=== PATIENT | female | born 1980 | race Caucasian/White ===

== ENCOUNTER 2019-01-26 12:53 | Emergency (ER) | payer OTHER ==
[2019-01-26 12:58] VITALS: O2SAT 100
[2019-01-26] MEDS ORDERED: Sodium Chloride 0.9% 1,000 ML IV STA (14:05)
[2019-01-26] MEDS ORDERED: Alum-Mag Hydrox-Simethicone Susp (30 mL) PO ONE (14:06)
[2019-01-26] MEDS ORDERED: Alum-Mag Hydrox-Simethicone Susp (30 mL) ONE (14:21)
--- NOTE | 2019-01-26 14:39 | ED PDOC ---
HPI: Abdomen Time Seen by Provider: 01/26/19 13:29 Chief Complaint (Nursing): Abdominal Pain Chief Complaint (Provider): abdominal pain History Per: Patient History/Exam Limitations: no limitations Additional Complaint(s): 38 y/o F with no significant PMH who presents with epigastric pain since yesterday. Pt states that she began having epigastric abdominal pain yesterday afternoon that has been intermittent. She had chills once and 2 episodes of N/V, non-bloody, non-bilious. Denies diarrhea. Last BM yesterday evening, normal. Denies fever, dizziness, prior surgical history. She has been able to tolerate food today and no longer feeling nauseous. Past Medical History Reviewed: Historical Data, Nursing Documentation, Vital Signs Vital Signs: Last Vital Signs Temp 98.2 F 01/26/19 12:55 Pulse 66 01/26/19 12:55 Resp 16 01/26/19 12:55 BP 119/77 01/26/19 12:55 Pulse Ox 100 01/26/19 12:55 Primary Care Provider: FAMILY PROVIDER,NO - Medical History PMH: No Chronic Diseases - Surgical History Surgical History: No Surg Hx - Family History Family History: States: Unknown Family Hx - Immunization History Hx Tetanus Toxoid Vaccination: No Hx Influenza Vaccination: No Hx Pneumococcal Vaccination: No - Home Medications Home Medications: Ambulatory Orders Medication Instructions Recorded Azithromycin [Zithromax Z-Rui] 250 mg PO DAILY #1 packet 09/23/15 Ibuprofen [Motrin] 600 mg PO Q6H PRN #15 tab 09/23/15 Ibuprofen [Motrin Tab] 600 mg PO Q6 PRN 7 Days tab 01/26/19 Simethicone [Gas Relief 80] 80 mg PO QID PRN 7 Days ctb 01/26/19 - Allergies Allergies/Adverse Reactions: Allergies Allergy/AdvReac Type Severity Reaction Status Date / Time No Known Allergies Allergy Verified 01/26/19 12:55 Review of Systems Constitutional: Positive for: Chills. Negative for: Fever Gastrointestinal: Positive for: Nausea, Vomiting, Abdominal Pain. Negative for: Diarrhea, Constipation Physical Exam - Reviewed Nursing Documentation Reviewed: Yes Vital Signs Reviewed: Yes - Physical Exam Appears: Positive for: Uncomfortable Cardiovascular/Chest: Positive for: Regular Rate, Rhythm Respiratory: Positive for: Normal Breath Sounds Gastrointestinal/Abdominal: Positive for: Soft, Tenderness (epigastric and LUQ tenderness on palpation. + Howe's signs), Guarding. Negative for: Mass, Distended, Rebound Neurological/Psych: Positive for: Awake, Alert, Oriented - Laboratory Results Result Diagrams: 01/26/19 14:45 01/26/19 15:20 - ECG O2 Sat by Pulse Oximetry: 100 Medical Decision Making Medical Decision Making: CBC, CMP, lipase Abdominal U/S, limited Troponin EKG Urine dip Urine preg NS 1L IV x 1 Pepcid 20mg IV x 1 Maalox 30mL PO x 1 Lidocaine viscous 15mL PO x 1 EKG: sinus, HR 66, no ischemic change. 16:00: re-evaluated, ultrasound still pending, pain has improved significantly. ABdominal U/S, limited: FINDINGS: LIVER: Measures 14.1 cm in length. Echogenic liver may be seen in setting of hepatic parenchymal disease or fatty infiltration. No focal hepatic mass identified. The main portal vein appears patent with normal directional flow. No intrahepatic bile duct dilatation. GALLBLADDER: Gallstones. No gallbladder wall thickening or pericholecystic edema. Negative sonographic Howe's sign as assessed by the dermatology teacher. COMMON BILE DUCT: Measures 2 mm. PANCREAS: Not well-visualized. RIGHT KIDNEY: Measures approximately 10.1 x 4.0 x 4.1 cm. No obstructing calculus, hydronephrosis, or renal cyst identified. AORTA: Limited visualization appears grossly unremarkable. IVC: Limited visualization appears grossly unremarkable. OTHER FINDINGS: None . IMPRESSION: Cholelithiasis. Echogenic liver may be seen in setting of hepatic parenchymal disease or fatty infiltration. Patient informed of ultrasound results and advised to follow up with her primary care doctor for further evaluation or to see GI doctor. Take Ibuprofen for pain. Return instructions given. Disposition - Clinical Impression Clinical Impression: Cholelithiasis - Patient ED Disposition Is Patient to be Admitted: No Counseled Patient/Family Regarding: Studies Performed, Diagnosis, Need For Followup - Disposition Referrals: [facility] [employer] [facility] [Outside] Galdino Crepso MD [Staff Provider] - Parker Larios MD, PhD [Staff Provider] - Disposition: Routine/Home Disposition Time: 18:25 Condition: IMPROVED Additional Instructions: Follow up with your primary care doctor for further assessment of gallstones. Take Ibuprofen for pain. STay hydrated. Return to ER if you develop fevers or worsening abdominal pain, N/V. Prescriptions: Ibuprofen [Motrin Tab] 600 mg PO Q6 PRN 7 Days tab PRN Reason: Pain, Moderate (4-7) Simethicone [Gas Relief 80] 80 mg PO QID PRN 7 Days ctb PRN Reason: Flatulence Instructions: Gallstones (DC) Forms: [employer]), [employer] ED School/Work Excuse Print Language: SWEDISH
[2019-01-26 15:14] LABS: BASO # 0.1 K/uL (0.0-0.2); BASO % 0.6 % (0.0-2.0); EOS % 0.1 % (0.0-4.0); HEMOGLOBIN 14.1 g/dL (12.0-16.0); LYMPH # 0.8 K/uL (1.0-4.3); LYMPH % 6.5 % (20.0-40.0); MEAN CORPUSCULAR HGB CONC 32.5 g/dL (33.0-37.0); MEAN PLATELET VOLUME 9.9 fl (7.2-11.7); MONO # 0.7 K/uL (0.0-0.8); MONO % 5.5 % (0.0-10.0); NEUT # 10.7 K/uL (1.8-7.0); NEUT % 87.3 % (50.0-75.0); NRBC % 0.1 % (0.0-0.0); PLATELET COUNT 297 K/uL (130-400); RBC 4.86 Mil/uL (3.80-5.20); RED CELL DISTRIBUTION WIDTH 14.7 % (11.5-14.5); WHITE BLOOD COUNT 12.3 K/uL (4.8-10.8)
[2019-01-26 15:33] LABS: ALB/GLOB RATIO 1.2 (1.0-2.1); ALBUMIN 4.6 g/dL (3.5-5.0); ALT/SGPT 164 U/L (9-52); AST/SGOT 374 U/L (14-36); BLOOD UREA NITROGEN 12 mg/dl (7-17); CALCIUM 8.9 mg/dL (8.4-10.2); GFR NON-AFRICAN AMERICAN > 60; LIPASE 99 U/L (23-300)
[2019-01-26 16:35] LABS: EOSINOPHIL 1 % (0-7); LYMPHOCYTE 10 % (20-50); MONOCYTE 7 % (0-10); NEUTROPHIL 82 % (42-75); PLATELET ESTIMATE NORMAL (NORMAL); TOTAL CELLS COUNTED 100
--- NOTE | 2019-01-26 17:42 | US ---
Date of service: 01/26/2019 HISTORY: epigastric pain, N/V COMPARISON: None available. TECHNIQUE: Sonographic evaluation of the right upper quadrant of the abdomen. FINDINGS: LIVER: Measures 14.1 cm in length. Echogenic liver may be seen in setting of hepatic parenchymal disease or fatty infiltration. No focal hepatic mass identified. The main portal vein appears patent with normal directional flow. No intrahepatic bile duct dilatation. GALLBLADDER: Gallstones. No gallbladder wall thickening or pericholecystic edema. Negative sonographic Howe's sign as assessed by the supervisor blueprinting and photocopy. COMMON BILE DUCT: Measures 2 mm. PANCREAS: Not well-visualized. RIGHT KIDNEY: Measures approximately 10.1 x 4.0 x 4.1 cm. No obstructing calculus, hydronephrosis, or renal cyst identified. AORTA: Limited visualization appears grossly unremarkable. IVC: Limited visualization appears grossly unremarkable. OTHER FINDINGS: None . IMPRESSION: Cholelithiasis. Echogenic liver may be seen in setting of hepatic parenchymal disease or fatty infiltration.
--- NOTE | 2019-01-26 18:06 | CARD ---
APPROVED REPORT Date of service: 01/26/2019 EKG Measurement Heart [id number] <Conclusion> Normal sinus rhythm Normal ECG
[2019-01-26 18:27] VITALS: BP 106/60; PULSE 65; RESP 17; TEMP 98.4
== END 2019-01-26 18:25 | disposition home or self-care (01) ==
LOC: H.ER 12:53
DX: K80.20 Calculus of gallbladder without cholecystitis without obstruction (principal)
CPT/HCPCS: 76705; 80053; 81025; 83690; 84484; 85025; 93005; 96361; 96374; 99284; J7030